=== PATIENT | male | born 1995 | race Caucasian/White ===

== ENCOUNTER 2022-12-13 15:19 | Emergency (ER) | payer OTHER ==
[~2022-12-13] VITALS: Ht 175.3 cm; Wt 104.3 kg
[2022-12-13] MEDS ORDERED: WELLBUTRIN XL150 M1 (15:44)
[2022-12-13] MEDS ORDERED: LANSOPRAZOLE30 MG (15:44)
[2022-12-13] MEDS ORDERED: INTUNIV2 MG (15:45)
[2022-12-13] MEDS ORDERED: CEPHALEXIN500 MG PO (19:49)
== END 2022-12-13 20:44 | disposition home or self-care (01) ==
LOC: ER 15:19
DX: S60.011A Contusion of right thumb without damage to nail, initial encounter (principal); X58.XXXA Exposure to other specified factors, initial encounter; Y93.89 Activity, other specified; Y92.89 Other specified places as the place of occurrence of the external cause; Y99.9 Unspecified external cause status